=== PATIENT | female | born 1985 | race Caucasian/White ===

== ENCOUNTER 2019-01-15 07:16 | Emergency (ER) | payer SELFPAY ==
[~2019-01-15] VITALS: Ht 154.9 cm; Wt 57.6 kg
[2019-01-15] MEDS ORDERED: PREDNISONE20 MG PO (07:53)
[2019-01-15] MEDS ORDERED: BACTRIM DS TAB1 EACH PO (07:53)
[2019-01-15] MEDS ORDERED: RANITIDINE HCL150 MG PO (07:58)
== END 2019-01-15 08:30 | disposition home or self-care (01) ==
LOC: FSED 07:16
DX: R21 Rash and other nonspecific skin eruption (principal); L50.9 Urticaria, unspecified; F17.210 Nicotine dependence, cigarettes, uncomplicated
CPT/HCPCS: 99282